=== PATIENT | male | born 1960 | race Caucasian/White ===

== ENCOUNTER 2020-09-14 10:11 | Emergency (ER) | payer OTHER ==
[~2020-09-14] VITALS: Ht 165.1 cm; Wt 75.0 kg
[2020-09-14 10:30] VITALS: BP 120/75
[2020-09-14] MEDS ORDERED: NIZOS TP (11:10)
[2020-09-14] MEDS ORDERED: BO1 TP (11:10)
[2020-09-14] MEDS ORDERED: BACITRACIN ZINC OINT UDPKT TOP ONE (11:30)
== END 2020-09-14 11:43 | disposition home or self-care (01) ==
LOC: ER 10:11
DX: Z48.02 Encounter for removal of sutures (principal)
CPT/HCPCS: 99282; A4217; Z7610

== ENCOUNTER 2020-10-28 07:28 | Emergency (ER) | payer OTHER ==
[~2020-10-28] VITALS: Ht 175.3 cm; Wt 80.0 kg
[~2020-10-28 07:28] MED LIST: BO1 TP; NIZOS TP
[2020-10-28] MEDS ORDERED: SODIUM CHLORIDE 0.9% 1,000 ML IV ONE (08:00)
[2020-10-28 08:10] LABS: BASOPHILS % 0.5 % (0.0-2.0); EOSINOPHILS % 5.1 % (0.0-5.0); HEMATOCRIT. 42.4 % (42.0-52.0); HEMOGLOBIN. 14.7 g/dL (14.0-18.0); MEAN CORPUSCULAR HEMOGLOBIN 33.7 pg (28.0-32.0); MEAN CORPUSCULAR VOLUME 97.3 fL (80.0-94.0); MEAN PLATELET VOLUME 7.3 fl (7.4-10.4); MONOCYTES % 8.2 % (2.0-8.0); NEUTROPHILS % 39.2 % (40.0-76.0); PLATELET 157 x1000/uL (130-400); RED BLOOD CELL COUNT 4.35 mill/uL (4.7-6.1); RED CELL DISTRIBUTION WIDTH 16.7 % (11.6-14.6)
[2020-10-28 08:14] LABS: CHLORIDE 106 mEq/L (98-107)
[2020-10-28 08:22] LABS: ETHANOL BLOOD 293 mg/dL
[2020-10-28] MEDS ORDERED: TETANUS, DIPHTHERIA, PERTUSSIS VAC/PF 0.5ML (>7YR OLD) IM ONE (09:15)
[2020-10-28] MEDS: CHLORDIAZEPOXIDE 25MG CAPSULE PO ONE ×2 (10:13→10:20)
[2020-10-29 01:00] VITALS: BP 121/69
== END 2020-10-29 01:01 | disposition home or self-care (01) ==
LOC: ER 07:28
DX: S09.8XXA Other specified injuries of head, initial encounter (principal); T51.0X1A Toxic effect of ethanol, accidental (unintentional), initial encounter; Y92.89 Other specified places as the place of occurrence of the external cause; W18.39XA Other fall on same level, initial encounter; Y93.89 Activity, other specified; Y99.8 Other external cause status; Z79.899 Other long term (current) drug therapy
CPT/HCPCS: 36415; 70450; 80053; 80320; 85025; 90471; 90715; 96360; 96361; 99285; A4217; J7030; Z7610; G0480